=== PATIENT | female | born 1990 | race Two or more races ===

== ENCOUNTER 2020-08-03 10:32 | Day surgery (SDC) | payer OTHER ==
[2020-08-03 12:04] LABS: BASO % 1.2 % (0-2.0); EOS % 6.8 % (0-4.5); HEMATOCRIT 36.9 % (32.4-45.2); HEMOGLOBIN 12.5 GM/dL (10.7-15.3); LYMPH % 24.1 % (8-40); MCHC 33.8 g/dl (32.0-36.0); MEAN CELL VOLUME 91.9 fl (80-96); MEAN PLT VOLUME 8.7 fl (7.5-11.1); NEUT % 60.9 % (42.8-82.8); PLATELET COUNT 181 K/MM3 (134-434); RBC 4.02 M/mm3 (3.60-5.2); RDW 13.2 % (11.6-15.6); WHITE BLOOD COUNT 6.7 K/mm3 (4.0-10.0)
[2020-08-03 13:28] VITALS: BMI 32.1
[2020-08-03] MEDS ORDERED: MIDAZOLAM HCL 2 MG/2 ML SINGLE DOSE VIAL ONE ×3 (14:37→16:01)
[2020-08-03] MEDS ORDERED: PROPOFOL 20 ML ONE (14:37)
[2020-08-03] MEDS ORDERED: DEXAMETHASONE SOD PHOSPHATE 4 MG/1 ML VIAL ONE (14:57)
[2020-08-03] MEDS ORDERED: OXYTOCIN 10 UNITS/ML VIAL ONE (15:32)
[2020-08-03] MEDS ORDERED: oxyCODONE HCL 5 MG TABLET PO PRN (15:41)
[2020-08-03] MEDS ORDERED: ONDANSETRON 4 MG/2 ML VIAL IVPUSH PRN (15:41)
[2020-08-03] MEDS ORDERED: LACTATED RINGERS SOLUTION 1,000 ML IV SCH (15:45)
[2020-08-03] MEDS ORDERED: oxyCODONE HCL 5 MG TABLET ONE (17:44)
[2020-08-03 17:56] VITALS: TEMP 97.8
[2020-08-03 21:11] VITALS: BP 127/89; PULSE 84
[2020-08-04] MEDS ORDERED: NIFEdipine E.R. 90 MG TABLET PO SCH (10:00)
--- NOTE | 2020-08-05 20:19 | OP ---
DATE OF OPERATION: 08/03/2020 PREOPERATIVE DIAGNOSES: 1. Missed . 2. Intrauterine dichorionic diamniotic twin gestation at 10 weeks 2 days. 3. Preexisting hypertension prior to . 4. Coagulation factor deficiency, acquired. POSTOPERATIVE DIAGNOSES: 1. Missed . 2. Intrauterine dichorionic diamniotic twin gestation at 10 weeks 2 days. 3. Preexisting hypertension prior to . 4. Coagulation factor deficiency, acquired. PROCEDURE: Dilation and curettage and intraoperative ultrasound evaluation. The patient was taken to the operating room, where general anesthesia was established by the anesthesiologist. She was positioned in the dorsal supine position and then placed in Jose L stirrups with Venodyne boots. She was placed in the dorsal lithotomy position and the vulva and vaginal canal were prepped with Betadine. She was then draped with sterile drapes for the above-stated procedure. A catheter was placed through the urethra and the bladder was drained of approximately 150 to 200 mL of clear yellow urine. Bimanual examination was performed and the uterine size was about 10 weeks size. A weighted speculum was placed into the vaginal canal and a ring forceps was used to grasp the anterior lip of the cervix. Starting with a small dilator, the cervix was carefully dilated to permit a 10-mm cannula. The cannula was then passed through the cervix, and passed through the internal os without any resistance. The suction tubing was tested to make sure adequate pressure was achieved and the pressure was noted to rise into the green zone. The cannula that had been inserted into the uterus was attached to the suction tube and suction curettage was performed, removing the products of conception. An appropriately large sharp curette was then inserted into the endometrial cavity, and all the uterine brown were curetted until a gritty feel was noted. The suction curette was placed into the uterine cavity and all of the debris was removed from the cavity. At this time the anesthesiologist placed 10 milliunits of Pitocin into a 1 L bag and was administered by IV to keep the uterus firm. At this time, a transabdominal ultrasound was performed in the operating room to check and make sure all of the products of conception were out of the uterus. Ultrasound demonstrated a small amount of debris that was still in the cavity and the suction curettage was passed one more time into the uterus to assure that all products of conception were removed. Excellent hemostasis was noted at this point. Bimanual massage was performed and there was no blood noted in the vagina. All instruments were removed from the vaginal canal and from the anterior lip of the cervix. The patient was taken out of the dorsal lithotomy position and her legs were placed in a supine position. She was awakened from general endotracheal intubation without any complication. She was taken to the recovery room in stable condition. MD DIPIKA JEFFERS/[id number] MTDD
--- NOTE | 2020-08-05 20:32 | PREOP ---
DATE OF ADMISSION: 08/03/2020 The patient is a 30-year-old, 4, para 1-2-0-3. She has a history of a 30-week delivery, a 24-week delivery, followed by 37-week full- term delivery. She has a history of hypertension and is controlled with Procardia 90 mg daily. She also has coagulation factor deficiency, acquired in , and is taking aspirin 81 mg daily. The patient presented to the office on August 02 for her routine visit at 10 weeks 2 days. During this visit, an ultrasound was performed to check for viability of a dichorionic diamniotic twin gestation. Upon performing the ultrasound examination, there was no heart activity detected for either fetus. Further evaluation was done at this time, and in addition to a diagnosis of a missed at 10 weeks 2 days it was noted that both fetuses were measuring 8 weeks 4 days, which was unchanged from her prior visit, at which time both fetuses were viable. After counseling regarding the options for evacuation and the fact that she had had 3 prior C-sections, a decision was made to proceed with a dilation and curettage. Of note, the products of conception were collected and the plan was for genetic testing to determine if there is any cause for the demise. The past medical history, as noted above, is significant for chronic hypertension, maintained on Procardia 90 mg daily and aspirin 81 mg daily. She has 3 prior surgeries, all of which were deliveries. There are no known allergies reported. The physical exam is unremarkable except for the ultrasound exam that shows a demise of the 2 fetuses. ASSESSMENT: Ten weeks two days with twin gestation, now demise of both, measures 2 weeks behind the established dates, and the plan is for a dilation and curettage for uterine evacuation. The patient is scheduled for August 03 for a dilation and curettage. She had testing preoperatively, CBC, her COVID-19 test was negative. MD DIPIKA JEFFERS/[id number] MTDD
--- NOTE | 2020-08-07 17:10 | PATH ---
Surgical Pathology Report Patient Name: RUPAL SALINAS Med. Rec. #: [id number] /Age/Gender: 1990 (Age: 30) / F Account: [id number] Location: [facility] Taken: 08/03/2020 Received: 08/06/2020 Reported: 08/07/2020 Physicians: Hattie Man M.D. Specimen(s) Received PRODUCTS OF CONCEPTION Clinical History Missed , twin gestation Final Diagnosis PRODUCTS OF CONCEPTION, DILATION AND CURETTAGE: IMMATURE CHORIONIC VILLI, DECIDUA, SOMATIC TISSUE, AND GESTATIONAL ENDOMETRIUM CONSISTENT WITH PRODUCTS OF CONCEPTION. Electronically Signed Wendy Jaime M.D. Gross Description Received fresh labeled "products of conception," is an 11.0 x 9.5 x 1.0 cm aggregate of millan-red tissue fragments. No definitive villous tissue or somatic tissue is identified. [employer] sections are submitted in 3 cassettes. DL/08/06/2020 saudi/08/06/2020
== END 2020-08-03 19:15 | disposition home or self-care (01) ==
LOC: JASU-SURG 10:32
PROVIDERS: ATTEND Obstetrics & Gynecology Maternal & Fetal Medicine
PROC: 10D17ZZ Extraction of Products of Conception, Retained, Via Natural or Artificial Opening (ICD-10-PCS; principal; 2020-08-03 16:00)
DX: O02.1 Missed abortion (principal); I10 Essential (primary) hypertension; O08.1 Delayed or excessive hemorrhage following ectopic and molar pregnancy; D68.4 Acquired coagulation factor deficiency
CPT/HCPCS: 36415; 85025; 86850; 86900; 86901; 88305-TC; 94760; U0003

== ENCOUNTER 2021-06-09 23:15 | Inpatient (IN) | payer OTHER ==
[2021-06-10] MEDS ORDERED: BETAMET ACET/BETAMET NA PH 30 MG/5 ML VIAL IM ONE (00:41)
[2021-06-10 00:53] LABS: INR 0.86 (0.83-1.09); PROTHROMBIN TIME (PATIENT) 10.5 SEC (9.7-13.0)
[2021-06-10] MEDS ORDERED: NIFEdipine 10 MG CAPSULE (FP) PO ONE (01:00)
[2021-06-10 01:07] LABS: BASO % 0.4 % (0-2.0); EOS % 1.5 % (0-4.5); HEMATOCRIT 33.7 % (32.4-45.2); HEMOGLOBIN 11.9 GM/dL (10.7-15.3); LYMPH % 17.3 % (8-40); MCH 33.6 pg (25.7-33.7); MCHC 35.4 g/dl (32.0-36.0); MEAN CELL VOLUME 94.8 fl (80-96); MEAN PLT VOLUME 9.8 fl (7.5-11.1); MONO % 9.1 % (3.8-10.2); NEUT % 71.7 % (42.8-82.8); PLATELET COUNT 118 10^3/uL (134-434); RBC 3.56 M/mm3 (3.60-5.2); RDW 13.4 % (11.6-15.6); WHITE BLOOD COUNT 10.4 K/mm3 (4.0-10.0)
[2021-06-10] MEDS ORDERED: CITRIC ACID/SODIUM CITRATE 30 ML UNIT-DOSE CUP PO ONE (01:13)
[2021-06-10 01:14] LABS: ALBUMIN 2.8 g/dl (3.4-5.0); BLOOD UREA NITROGEN 14.7 mg/dL (7-18); CALCIUM 7.5 mg/dL (8.5-10.1)
[2021-06-10 01:17] LABS: CREATININE 1.1 mg/dL (0.55-1.3)
[2021-06-10 01:18] LABS: BILIRUBIN,TOTAL 0.2 mg/dL (0.2-1); TOT PROT 6.3 g/dl (6.4-8.2)
[2021-06-10 01:21] VITALS: BMI 41.5
[2021-06-10] MEDS: DEXTROSE 5%-LACTATED RINGERS 1,000 ML IV SCH (02:30)
[2021-06-10 04:22] LABS: BASO % 0.4 % (0-2.0); EOS % 0.5 % (0-4.5); HEMATOCRIT 32.9 % (32.4-45.2); HEMOGLOBIN 11.7 GM/dL (10.7-15.3); LYMPH % 12.1 % (8-40); MCH 32.9 pg (25.7-33.7); MCHC 35.4 g/dl (32.0-36.0); MEAN CELL VOLUME 93.2 fl (80-96); MEAN PLT VOLUME 9.3 fl (7.5-11.1); MONO % 3.5 % (3.8-10.2); NEUT % 83.5 % (42.8-82.8); PLATELET COUNT 111 10^3/uL (134-434); RBC 3.54 M/mm3 (3.60-5.2); RDW 13.5 % (11.6-15.6); WHITE BLOOD COUNT 11.8 K/mm3 (4.0-10.0)
[2021-06-10] MEDS ORDERED: ePHEDrine SULFATE 50 MG/1 ML AMPULE ONE (04:31)
[2021-06-10] MEDS ORDERED: SODIUM CHLORIDE 0.9% P/F 10 ML VIAL IJ ONE (04:32)
[2021-06-10] MEDS ORDERED: morphine SULFATE/PF 0.5 MG/ML (2cc Syringe - QUVA) ONE (04:37)
[2021-06-10] MEDS ORDERED: OXYTOCIN 10 UNITS/ML VIAL ONE ×2 (05:11→06:04)
[2021-06-10] MEDS ORDERED: KETOROLAC TROMETHAMINE 30 MG/1 ML VIAL ONE (05:11)
[2021-06-10] MEDS ORDERED: ceFAZolin SODIUM 1 GM VIAL ONE (05:11)
[2021-06-10 06:28] LABS: HIV INTERPRETATION NEGATIVE (NEGATIVE)
[2021-06-10] MEDS ORDERED: KETAMINE HCL 500 MG/10 ML VIAL ONE (06:43)
[2021-06-10] MEDS ORDERED: LIDOCAINE HCL 1% PRESERVATIVE FREE - 30ML VIAL ONE (07:14)
[2021-06-10] MEDS ORDERED: BUPIVACAINE HCL/PF 0.5% (5MG/ML) 10 ML VIAL ONE (07:16)
[2021-06-10] MEDS ORDERED: NIFEdipine E.R. 30 MG TABLET ONE (08:14)
[2021-06-10] MEDS: NIFEdipine E.R 60 MG TABLET PO SCH ×2 (08:20→14:01)
[2021-06-10 09:09] LABS: CORD BASE EXCESS -6.5 mmol/L (0-2); CORD HCO3 22.2 mmHg (20-29); CORD PCO2 56.3 mmHg (30-78); CORD pH 7.214 (7.14-7.44)
[2021-06-10 09:14] LABS: CORD PCO2 67.4 mmHg (30-78)
[2021-06-10 09:18] LABS: CORD BASE EXCESS -7.7 mmol/L (0-2); CORD HCO3 20.1 mmHg (20-29); CORD PCO2 49.6 mmHg (30-78); CORD pH 7.226 (7.14-7.44)
[2021-06-10] MEDS ORDERED: ACETAMINOPHEN INJECTION 100 ML IVPB ONE (09:20)
[2021-06-10] MEDS ORDERED: ACETAMINOPHEN 1000 MG/100 ML VIAL (NON FORMULARY) IVPB ONE ×2 (10:03→10:42)
[2021-06-10] MEDS ORDERED: MAGNESIUM SULFATE 20GM/500ML - 20 GM/500 ML INFUS.BAG ONE (10:24)
[2021-06-10] MEDS: OXYTOCIN 20 UNITS in 0.9% NS 20 UNIT/1,000 ML INFUS.BAG IV SCH (10:30)
[2021-06-10] MEDS ORDERED: MAGNESIUM SULFATE 20GM/500ML 20 GM/500 ML INFUS.BAG IVPB SCH (10:30)
[2021-06-10] MEDS: MAGNESIUM SULF 50% (8.12 MEQ/2 ML-1 GM VIAL) IVPB ONE ×2 (10:30→17:33)
[2021-06-10] MEDS ORDERED: OXYTOCIN 20 UNITS in 0.9% NS 20 UNIT/1,000 ML INFUS.BAG IV ONE (17:53)
[2021-06-10] MEDS: MAGNESIUM SULFATE 20GM/500ML - 20 GM/500 ML INFUS.BAG IVPB SCH (20:35)
[2021-06-11] MEDS ORDERED: oxyCODONE HCL 5 MG TABLET ONE ×2 (01:56→07:13)
[2021-06-11] MEDS: oxyCODONE HCL 5 MG TABLET PO PRN ×3 (01:56→11:58)
[2021-06-11] MEDS ORDERED: ACETAMINOPHEN 325 MG TABLET (FP) ONE (04:26)
[2021-06-11] MEDS: ACETAMINOPHEN 325 MG TABLET (FP) PO PRN ×2 (04:30→22:53)
[2021-06-11] MEDS: MAGNESIUM SULFATE 20GM/500ML - 20 GM/500 ML INFUS.BAG IVPB SCH (06:30)
[2021-06-11] MEDS ORDERED: MAGNESIUM SULFATE 20GM/500ML - 20 GM/500 ML INFUS.BAG ONE (06:30)
[2021-06-11 06:57] LABS: BASO % 0.3 % (0-2.0); HEMATOCRIT 19.8 % (32.4-45.2); LYMPH % 11.7 % (8-40); MCH 33.2 pg (25.7-33.7); MCHC 34.8 g/dl (32.0-36.0); MEAN CELL VOLUME 95.4 fl (80-96); MEAN PLT VOLUME 9.3 fl (7.5-11.1); MONO % 7.2 % (3.8-10.2); NEUT % 80.8 % (42.8-82.8); PLATELET COUNT 141 10^3/uL (134-434); RBC 2.08 M/mm3 (3.60-5.2); RDW 13.5 % (11.6-15.6); WHITE BLOOD COUNT 16.6 K/mm3 (4.0-10.0)
[2021-06-11 06:59] LABS: HEMOGLOBIN 6.9 GM/dL (10.7-15.3)
[2021-06-11] MEDS ORDERED: IBUPROFEN 600 MG TABLET (FP) PO ONE (08:29)
[2021-06-11] MEDS: IBUPROFEN 600 MG TABLET (FP) PO PRN ×2 (08:33→22:53)
[2021-06-11] MEDS: DEXTROSE 5%-LACTATED RINGERS 1,000 ML IV SCH ×2 (08:34→20:05)
[2021-06-11] MEDS ORDERED: BISACODYL 10 MG SUPP.RECT RC PRN (09:41)
[2021-06-11] MEDS ORDERED: IRON SUCROSE INJECTION 300 MG in SODIUM CHLORIDE 235 ML IVPB ONE (10:00)
[2021-06-11] MEDS: NIFEdipine E.R 60 MG TABLET PO SCH (10:19)
[2021-06-11] MEDS: SIMETHICONE 80 MG TAB.CHEW (FP) PO PRN ×2 (11:57→22:53)
[2021-06-12] MEDS: DEXTROSE 5%-LACTATED RINGERS 1,000 ML IV SCH (04:00)
[2021-06-12] MEDS: oxyCODONE HCL 5 MG TABLET PO PRN ×2 (05:24→17:41)
[2021-06-12] MEDS: IBUPROFEN 600 MG TABLET (FP) PO PRN ×2 (05:25→10:18)
[2021-06-12] MEDS: SIMETHICONE 80 MG TAB.CHEW (FP) PO PRN ×4 (05:26→21:47)
[2021-06-12] MEDS ORDERED: DIPHTH,PERTUSS(ACELL),TET 0.5 ML DISP.SYRIN IM ONE (10:00)
[2021-06-12] MEDS: FERROUS SO4 325 MG TABLET (FP) PO SCH ×2 (10:16→21:25)
[2021-06-12 10:39] LABS: BASO % 0.2 % (0-2.0); EOS % 0.3 % (0-4.5); HEMATOCRIT 16.4 % (32.4-45.2); LYMPH % 17.4 % (8-40); MCH 33.5 pg (25.7-33.7); MCHC 34.6 g/dl (32.0-36.0); MEAN CELL VOLUME 96.7 fl (80-96); MEAN PLT VOLUME 9.1 fl (7.5-11.1); MONO % 8.9 % (3.8-10.2); NEUT % 73.2 % (42.8-82.8); PLATELET COUNT 125 10^3/uL (134-434); RDW 13.8 % (11.6-15.6)
[2021-06-12 10:51] LABS: CHLORIDE 106 mmol/L (98-107); SODIUM 139 mmol/L (136-145)
[2021-06-12 10:54] LABS: ANION GAP 7 MMOL/L (8-16); BLOOD UREA NITROGEN 10.6 mg/dL (7-18); CO2 27 mmol/L (21-32); GLUCOSE,RANDOM 148 mg/dL (74-106); HEMOGLOBIN 5.7 GM/dL (10.7-15.3)
[2021-06-12 10:57] LABS: CREATININE 0.6 mg/dL (0.55-1.3); SGOT/AST 57 U/L (15-37); SGPT/ALT 46 U/L (13-61)
[2021-06-12 10:58] LABS: BILIRUBIN,TOTAL 0.1 mg/dL (0.2-1)
[2021-06-12 10:59] LABS: TOT PROT 4.9 g/dl (6.4-8.2)
[2021-06-12] MEDS: NIFEdipine E.R 60 MG TABLET PO SCH (11:01)
[2021-06-12 11:04] LABS: ALBUMIN 2.2 g/dl (3.4-5.0); ALK PHOS 87 U/L (45-117); CALCIUM 6.5 mg/dL (8.5-10.1)
[2021-06-12] MEDS ORDERED: NIFEdipine 10 MG CAPSULE (FP) PO ONE (18:25)
[2021-06-12 20:50] LABS: BASO % 0.3 % (0-2.0); EOS % 0.4 % (0-4.5); HEMATOCRIT 22.5 % (32.4-45.2); HEMOGLOBIN 7.8 GM/dL (10.7-15.3); LYMPH % 14.5 % (8-40); MCH 32.7 pg (25.7-33.7); MCHC 34.5 g/dl (32.0-36.0); MEAN CELL VOLUME 94.8 fl (80-96); MEAN PLT VOLUME 8.4 fl (7.5-11.1); MONO % 8.1 % (3.8-10.2); NEUT % 76.7 % (42.8-82.8); PLATELET COUNT 131 10^3/uL (134-434); RBC 2.37 M/mm3 (3.60-5.2); RDW 13.6 % (11.6-15.6); WHITE BLOOD COUNT 16.2 K/mm3 (4.0-10.0)
[2021-06-12] MEDS: LABETALOL HCL 200 MG TABLET (FP) PO SCH ×2 (21:25→21:26)
[2021-06-12 21:27] LABS: PLATELET ESTIMATE DECREASED
[2021-06-13] MEDS: SIMETHICONE 80 MG TAB.CHEW (FP) PO PRN (05:21)
[2021-06-13] MEDS: ACETAMINOPHEN 325 MG TABLET (FP) PO PRN (05:21)
[2021-06-13] MEDS: IBUPROFEN 600 MG TABLET (FP) PO PRN (05:21)
[2021-06-13 08:27] LABS: BASO % 0.2 % (0-2.0); EOS % 0.4 % (0-4.5); HEMATOCRIT 19.6 % (32.4-45.2); LYMPH % 17.5 % (8-40); MCH 33.5 pg (25.7-33.7); MCHC 35.2 g/dl (32.0-36.0); MEAN CELL VOLUME 95.2 fl (80-96); MEAN PLT VOLUME 8.9 fl (7.5-11.1); MONO % 9.3 % (3.8-10.2); NEUT % 72.6 % (42.8-82.8); PLATELET COUNT 111 10^3/uL (134-434); RBC 2.05 M/mm3 (3.60-5.2); RDW 13.8 % (11.6-15.6); WHITE BLOOD COUNT 14.3 K/mm3 (4.0-10.0)
[2021-06-13 08:39] LABS: HEMOGLOBIN 6.9 GM/dL (10.7-15.3)
[2021-06-13] MEDS: NIFEdipine E.R 60 MG TABLET PO SCH (08:59)
[2021-06-13 10:01] LABS: PLATELET ESTIMATE DECREASED
[2021-06-13] MEDS: LABETALOL HCL 200 MG TABLET (FP) PO SCH ×2 (10:13→21:30)
[2021-06-13] MEDS: FERROUS SO4 325 MG TABLET (FP) PO SCH ×2 (10:13→21:31)
[2021-06-13 16:56] LABS: BASO % 0.3 % (0-2.0); EOS % 0.8 % (0-4.5); HEMATOCRIT 20.3 % (32.4-45.2); LYMPH % 16.1 % (8-40); MCH 32.8 pg (25.7-33.7); MCHC 34.6 g/dl (32.0-36.0); MEAN PLT VOLUME 8.5 fl (7.5-11.1); MONO % 7.3 % (3.8-10.2); NEUT % 75.5 % (42.8-82.8); PLATELET COUNT 130 10^3/uL (134-434); RBC 2.13 M/mm3 (3.60-5.2); RDW 13.9 % (11.6-15.6); WHITE BLOOD COUNT 13.3 K/mm3 (4.0-10.0)
[2021-06-13 17:36] LABS: ANISOCYTOSIS 1+; MACROCYTOSIS 0; PLATELET ESTIMATE DECREASED
[2021-06-14] MEDS: oxyCODONE HCL 5 MG TABLET PO PRN (01:50)
[2021-06-14] MEDS: ACETAMINOPHEN 325 MG TABLET (FP) PO PRN ×2 (01:50→15:25)
[2021-06-14] MEDS: SIMETHICONE 80 MG TAB.CHEW (FP) PO PRN ×2 (01:50→15:25)
[2021-06-14] MEDS ORDERED: NIFEdipine E.R. 30 MG TABLET PO SCH (08:00)
[2021-06-14] MEDS: OXYTOCIN 20 UNITS in 0.9% NS 20 UNIT/1,000 ML INFUS.BAG IV SCH ×2 (08:48→11:10)
[2021-06-14] MEDS: DEXTROSE 5%-LACTATED RINGERS 1,000 ML IV SCH (08:48)
[2021-06-14] MEDS: LABETALOL HCL 200 MG TABLET (FP) PO SCH (10:50)
[2021-06-14 10:53] LABS: BASO % 0.2 % (0-2.0); EOS % 0.9 % (0-4.5); HEMATOCRIT 20.4 % (32.4-45.2); LYMPH % 19.2 % (8-40); MCH 33.4 pg (25.7-33.7); MCHC 34.4 g/dl (32.0-36.0); MEAN PLT VOLUME 9.1 fl (7.5-11.1); MONO % 5.1 % (3.8-10.2); NEUT % 74.6 % (42.8-82.8); PLATELET COUNT 162 10^3/uL (134-434); RBC 2.11 M/mm3 (3.60-5.2); RDW 13.8 % (11.6-15.6); WHITE BLOOD COUNT 12.4 K/mm3 (4.0-10.0)
[2021-06-14] MEDS: FERROUS SO4 325 MG TABLET (FP) PO SCH (11:00)
[2021-06-14 11:19] LABS: ALBUMIN 2.3 g/dl (3.4-5.0)
[2021-06-14 11:20] LABS: BLOOD UREA NITROGEN 15.3 mg/dL (7-18)
[2021-06-14 11:22] LABS: CREATININE 0.7 mg/dL (0.55-1.3)
[2021-06-14 11:24] LABS: BILIRUBIN,TOTAL 0.3 mg/dL (0.2-1); TOT PROT 5.2 g/dl (6.4-8.2)
[2021-06-14 11:26] LABS: CALCIUM 8.2 mg/dL (8.5-10.1)
[2021-06-14 13:52] VITALS: BP 128/81; PULSE 96; TEMP 98
[2021-06-14 14:10] LABS: ANISOCYTOSIS 1+; MACROCYTOSIS 0; PLATELET ESTIMATE DECREASED; TEAR DROP CELLS 1+; TOXIC GRANULATION 1+
[2021-06-14] MEDS: IBUPROFEN 600 MG TABLET (FP) PO PRN (15:25)
== END 2021-06-14 15:45 | disposition home or self-care (01) | DRG 540 ==
LOC: JDEL 23:15 → JLDR 23:20 → J3W 06-11 10:39
PROVIDERS: ADMIT Obstetrics & Gynecology Maternal & Fetal Medicine; ATTEND Obstetrics & Gynecology Maternal & Fetal Medicine
PROC: 10D00Z1 Extraction of Products of Conception, Low, Open Approach (ICD-10-PCS; principal; 2021-06-10)
PROC: 0UL70ZZ Occlusion of Bilateral Fallopian Tubes, Open Approach (ICD-10-PCS; 2021-06-10)
PROC: 30233N1 Transfusion of Nonautologous Red Blood Cells into Peripheral Vein, Percutaneous Approach (ICD-10-PCS; 2021-06-12)
DX: O34.219 Maternal care for unspecified type scar from previous cesarean delivery (principal); O30.043 Twin pregnancy, dichorionic/diamniotic, third trimester; O24.424 Gestational diabetes mellitus in childbirth, insulin controlled; O10.92 Unspecified pre-existing hypertension complicating childbirth; Z37.2 Twins, both liveborn; O90.81 Anemia of the puerperium; D64.9 Anemia, unspecified; Z30.2 Encounter for sterilization; O99.892 Other specified diseases and conditions complicating childbirth; N73.6 Female pelvic peritoneal adhesions (postinfective); Z3A.32 32 weeks gestation of pregnancy
CPT/HCPCS: 36415; 36430; 36600; 80053; 82803; 85025; 85610; 85730; 86780; 86850; 86900; 86901; 86922; 87389; 88302-TC; 88307-TC; C9803; J0131; J1756; P9058; U0003; U0005